=== PATIENT | female | born 1965 | race Caucasian/White ===

== ENCOUNTER 2017-06-09 10:21 | Emergency (ER) | payer BC ==
[~2017-06-09] VITALS: Ht 165.1 cm; Wt 108.9 kg
--- NOTE | ~2017-06-09 | EKG ---
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: [facility] : 1965 Requested By: Billy Sears Order Number: [id number] MD: Avi Parrish Measurements Intervals [place] Rate: 54 P: 37 ND: 159 QRS: 3 QRSD: 109 T: 20 QT: 475 QTc: 451 Interpretive Statements Sinus rhythm Borderline T abnormalities, anterior leads No previous ECG available for comparison Electronically Signed On 06-09-2017 17:18:55 [employer] by Avi Parrish [email or web address] <ELECTRONICALLY SIGNED> By: Avi Parrish MD, [facility] 06/09/17 1718 1229 1229 Avi Parrish MD, FACC /EPI
[2017-06-09 12:11] LABS: HEMOGLOBIN 13.6 gm/dL (12.0-15.0); MCH 31.2 pg (26.0-34.0); MCHC 34.8 g/dL (28.0-37.0); MCV 89.8 fL (80.0-100.0); RBC 4.34 mil/uL (4.20-5.00); RDW 13.6 % (10.5-14.5); WBC 7.5 thou/uL (4.0-11.0)
[2017-06-09 12:19] LABS: ANION GAP 12 mmol/L (7-16); BUN 11 mg/dL (7-18); CALCIUM 9.3 mg/dL (8.5-10.1); CHLORIDE 105 mmol/L (98-107); CO2 24 mmol/L (21-32); CREATININE 0.8 mg/dL (0.6-1.0); GLUCOSE 97 mg/dL (74-106); POTASSIUM 3.3 mmol/L (3.5-5.1); SODIUM 141 mmol/L (136-145)
[2017-06-09 12:24] LABS: PROTIME 10.5 Seconds (9.3-11.4)
[2017-06-09 12:27] LABS: TROPONIN-I < 0.04 ng/mL (<0.06)
[2017-06-09] MEDS ORDERED: ATIVAN1 MG PO (14:55)
== END 2017-06-09 15:35 | disposition home or self-care (01) ==
LOC: ER 10:21
PROVIDERS: Physician Assistant
DX: F41.9 Anxiety disorder, unspecified (principal); R41.0 Disorientation, unspecified; Z90.710 Acquired absence of both cervix and uterus